=== PATIENT | male | born 1935 | race African-American/Black ===

== ENCOUNTER → 2017-04-16 | Outpatient (CLI) | payer MEDICARE, OTHER ==
[~2017-04-16] VITALS: Ht 180.3 cm; Wt 76.0 kg
[~2017-04-16] MED LIST: APIX2.5T PO; ASPI81 PO; FOLI1TAB15 PO; PYRI50TA PO; TELM20 PO
[2017-04-16 10:20] VITALS: BP 103/80
== END | disposition home or self-care (01) ==
LOC: SRCNTR 10:10
PROVIDERS: ATTEND Internal Medicine Clinical Cardiac Electrophysiology
DX: Z45.018 Encounter for adjustment and management of other part of cardiac pacemaker (principal); I11.0 Hypertensive heart disease with heart failure; I50.22 Chronic systolic (congestive) heart failure; I48.91 Unspecified atrial fibrillation; Z86.73 Personal history of transient ischemic attack (TIA), and cerebral infarction without residual deficits
CPT/HCPCS: G0463

== ENCOUNTER → 2017-07-16 | Outpatient (CLI) | payer MEDICARE, OTHER ==
[~2017-07-16] VITALS: Ht 180.3 cm; Wt 71.0 kg
[~2017-07-16] MED LIST changes: +VITAD50000 PO
[2017-07-16 10:32] VITALS: BP 117/72
== END | disposition home or self-care (01) ==
LOC: SRCNTR 10:08
PROVIDERS: ATTEND Internal Medicine Clinical Cardiac Electrophysiology
DX: Z45.02 Encounter for adjustment and management of automatic implantable cardiac defibrillator (principal); I11.0 Hypertensive heart disease with heart failure; I50.9 Heart failure, unspecified; I48.91 Unspecified atrial fibrillation; Z86.73 Personal history of transient ischemic attack (TIA), and cerebral infarction without residual deficits
CPT/HCPCS: G0463

== ENCOUNTER 2017-10-30 07:59 | Day surgery (SDC) | payer MEDICARE, OTHER ==
[~2017-10-30] VITALS: Ht 170.2 cm; Wt 80.0 kg
[~2017-10-30 07:59] MED LIST changes: -PYRI50TA PO; +PYRI50TA15 PO
[2017-10-30] MEDS ORDERED: FentaNYL CITRATE-PF 100 MCG/2 ML VIAL IVP ONE (08:00)
[2017-10-30] MEDS ORDERED: 0.9% SODIUM CHLORIDE 10 ML VIAL IVP ONE (08:00)
[2017-10-30] MEDS ORDERED: PROPOFOL 1% 20 ML VIAL IVP ONE (08:00)
[2017-10-30] MEDS ORDERED: MIDAZOLAM HCL 2 MG/2 ML VIAL IVP ONE (08:00)
[2017-10-30] MEDS ORDERED: SODIUM CHLORIDE 0.9% 1,000 ML IV ONE (09:00)
[2017-10-30] MEDS ORDERED: NAPR220T57 PO (09:16)
[2017-10-30] MEDS ORDERED: PYRI100T2 PO (09:37)
[2017-10-30] MEDS ORDERED: FOLI0.4T4 PO (09:37)
[2017-10-30 09:44] LABS: BASOPHILS % (AUTO) 0.6 % (0.0-2.0); EOSINOPHILS % (AUTO) 3.5 % (1.0-6.0); HEMATOCRIT 39.2 % (41-53); HEMOGLOBIN 13.5 g/dL (13.5-17.5); LYMPHOCYTES # (AUTO) 0.8 K/uL (1.0-4.8); LYMPHOCYTES % (AUTO) 32.3 % (22.0-44.0); MEAN CORPUSCULAR HEMOGLOBIN 31.9 pg (26.0-34.0); MEAN CORPUSCULAR HGB CONC 34.6 G/dL (31.0-37.0); MEAN CORPUSCULAR VOLUME 92 fL (80-100); MONOCYTES # (AUTO) 0.3 K/uL (0.1-1.0); MONOCYTES % (AUTO) 10.7 % (2.0-9.0); NEUTROPHILS # (AUTO) 1.3 K/uL (1.8-7.7); NEUTROPHILS % (AUTO) 52.9 % (40.0-70.0); RED BLOOD CELL COUNT(AUTO) 4.25 MIL/uL (4.50-5.90); RED CELL DISTRIBUTION WIDTH 14.7 % (11.5-14.5); WHITE BLOOD COUNT (AUTO) 2.5 K/uL (4.5-11.0)
[2017-10-30 09:50] LABS: ANION GAP 3 mmol/L (8-16); CALCIUM, TOTAL 8.7 mg/dL (8.8-10.5); CARBON DIOXIDE 31 mmol/L (22-29); CHLORIDE 107 mmol/L (98-107); CREATININE 0.94 mg/dL (0.60-1.30); GLOMERULAR FILTR. RATE CALC > 60 mL/min (>60); POTASSIUM 3.8 mmol/L (3.5-5.1); SODIUM SERUM 141 mmol/L (136-145); UREA NITROGEN, BLOOD 10 mg/dL (7-18)
[2017-10-30 09:58] LABS: PLATELET COUNT (AUTO) 62 K/uL (150-450)
[2017-10-30] MEDS ORDERED: LIDOCAINE HCL/PF 1% 30 ML VIAL ONE ×2 (11:17→11:50)
[2017-10-30] MEDS ORDERED: SODIUM BICARBONATE 50 MEQ/50 ML VIAL ONE (11:18)
[2017-10-30 11:21] VITALS: BP 134/47
[2017-10-30] MEDS ORDERED: BUPIVACAINE LIPOSOME/PF 1.3%-13.3MG/ML SUSPENSION 10 ML VIAL INJ ONE (11:45)
[2017-10-30] MEDS ORDERED: LIDOCAINE 1% 30 ML/SOD BICARB 8.4% 4 ML SQ ONE (11:45)
[2017-10-30 12:34] VITALS: BP 146/101
[2017-10-30] MEDS ORDERED: CeFAZolin 1 GM/DEXTROSE 50 ML IV ONE (15:30)
== END 2017-10-30 16:30 | disposition home or self-care (01) ==
LOC: SDS 07:59
PROVIDERS: ATTEND Internal Medicine Clinical Cardiac Electrophysiology
DX: Z45.02 Encounter for adjustment and management of automatic implantable cardiac defibrillator (principal); I11.0 Hypertensive heart disease with heart failure; I50.9 Heart failure, unspecified; I25.10 Atherosclerotic heart disease of native coronary artery without angina pectoris; I44.7 Left bundle-branch block, unspecified; Z79.01 Long term (current) use of anticoagulants; Z79.82 Long term (current) use of aspirin; Z98.890 Other specified postprocedural states; Z86.73 Personal history of transient ischemic attack (TIA), and cerebral infarction without residual deficits
CPT/HCPCS: 33264; 36415; 80048; 85025; 85610; 85730; 88300; 93005; C2621; J0690; J2250; J2704; J3010; J3490 ×2; 33240

== ENCOUNTER → 2017-10-31 | Outpatient (CLI) | payer MEDICARE, OTHER ==
[~2017-10-31] MED LIST changes: +CeFAZolin 1 GM/DEXTROSE 50 ML IV ONE; +FOLI0.4T4 PO; -FOLI1TAB15 PO; +NAPR220T57 PO; +PYRI100T2 PO; -PYRI50TA15 PO; +SODIUM CHLORIDE 0.9% 1,000 ML IV ONE
[2017-10-31 09:21] VITALS: BP 119/75
== END | disposition home or self-care (01) ==
LOC: SRCNTR 09:07
PROVIDERS: ATTEND Internal Medicine Clinical Cardiac Electrophysiology
DX: Z45.010 Encounter for checking and testing of cardiac pacemaker pulse generator [battery] (principal)
CPT/HCPCS: G0463; J0690; J7030

== ENCOUNTER → 2017-11-05 | Outpatient (CLI) | payer MEDICARE, OTHER ==
[~2017-11-05] MED LIST changes: -CeFAZolin 1 GM/DEXTROSE 50 ML IV ONE; +NEOMYCIN/BACITRACIN/POLYMYXIN B OINTMENT PACKET TP ONE; -SODIUM CHLORIDE 0.9% 1,000 ML IV ONE
[2017-11-05 11:33] VITALS: BP 123/79
== END | disposition home or self-care (01) ==
LOC: SRCNTR 11:07
PROVIDERS: ATTEND Internal Medicine Clinical Cardiac Electrophysiology
DX: Z45.02 Encounter for adjustment and management of automatic implantable cardiac defibrillator (principal); I11.0 Hypertensive heart disease with heart failure; I48.0 Paroxysmal atrial fibrillation; I50.22 Chronic systolic (congestive) heart failure; Z79.01 Long term (current) use of anticoagulants; Z79.82 Long term (current) use of aspirin; Z86.73 Personal history of transient ischemic attack (TIA), and cerebral infarction without residual deficits; Z95.810 Presence of automatic (implantable) cardiac defibrillator; Z98.890 Other specified postprocedural states
CPT/HCPCS: G0463

== ENCOUNTER → 2017-11-08 | Outpatient (CLI) | payer MEDICARE, OTHER ==
[~2017-11-08] MED LIST changes: -NEOMYCIN/BACITRACIN/POLYMYXIN B OINTMENT PACKET TP ONE
[2017-11-08 09:08] VITALS: BP 96/50
== END | disposition home or self-care (01) ==
LOC: SRCNTR 09:07
PROVIDERS: ATTEND Internal Medicine Clinical Cardiac Electrophysiology
DX: Z45.02 Encounter for adjustment and management of automatic implantable cardiac defibrillator (principal); Z95.810 Presence of automatic (implantable) cardiac defibrillator
CPT/HCPCS: G0463

== ENCOUNTER → 2017-11-12 | Outpatient (CLI) | payer MEDICARE, OTHER ==
[2017-11-12 12:21] VITALS: BP 125/66
== END | disposition home or self-care (01) ==
LOC: SRCNTR 12:04
PROVIDERS: ATTEND Internal Medicine Clinical Cardiac Electrophysiology
DX: Z45.018 Encounter for adjustment and management of other part of cardiac pacemaker (principal)
CPT/HCPCS: 93288; G0463

== ENCOUNTER → 2017-12-10 | Outpatient (CLI) | payer MEDICARE, OTHER ==
[2017-12-10 12:43] VITALS: BP 99/57
== END | disposition home or self-care (01) ==
LOC: SRCNTR 11:02
PROVIDERS: ATTEND Internal Medicine Clinical Cardiac Electrophysiology
DX: I50.22 Chronic systolic (congestive) heart failure (principal); I48.0 Paroxysmal atrial fibrillation; Z79.01 Long term (current) use of anticoagulants; Z79.82 Long term (current) use of aspirin; Z86.73 Personal history of transient ischemic attack (TIA), and cerebral infarction without residual deficits; Z95.810 Presence of automatic (implantable) cardiac defibrillator
CPT/HCPCS: 93288; G0463

== ENCOUNTER → 2018-02-10 | Outpatient (CLI) | payer MEDICARE, OTHER ==
[~2018-02-10] MED LIST changes: +CYAN1TAB44 PO; +FURO40 PO; +IBUP-2354 PO
[2018-02-10 11:30] VITALS: BP 126/82
== END | disposition home or self-care (01) ==
LOC: SRCNTR 10:46
PROVIDERS: ATTEND Internal Medicine Cardiovascular Disease
DX: I11.0 Hypertensive heart disease with heart failure (principal); I50.9 Heart failure, unspecified; I48.0 Paroxysmal atrial fibrillation; I42.9 Cardiomyopathy, unspecified; D64.9 Anemia, unspecified; Z79.01 Long term (current) use of anticoagulants; Z79.82 Long term (current) use of aspirin; Z86.73 Personal history of transient ischemic attack (TIA), and cerebral infarction without residual deficits; Z95.810 Presence of automatic (implantable) cardiac defibrillator
CPT/HCPCS: G0463

== ENCOUNTER → 2018-05-14 | Outpatient (CLI) | payer MEDICARE, OTHER ==
[~2018-05-14] MED LIST changes: +ACET-66 PO; -APIX2.5T PO; -NAPR220T57 PO; -PYRI100T2 PO
[2018-05-14 09:53] VITALS: BP 109/68
== END | disposition home or self-care (01) ==
LOC: SRCNTR 09:27
PROVIDERS: ATTEND Internal Medicine Cardiovascular Disease
DX: I11.0 Hypertensive heart disease with heart failure (principal); I42.9 Cardiomyopathy, unspecified; I48.0 Paroxysmal atrial fibrillation; I49.9 Cardiac arrhythmia, unspecified; D64.9 Anemia, unspecified; Z86.73 Personal history of transient ischemic attack (TIA), and cerebral infarction without residual deficits; Z95.810 Presence of automatic (implantable) cardiac defibrillator
CPT/HCPCS: G0463

== ENCOUNTER → 2018-06-20 | Outpatient (CLI) | payer MEDICARE, OTHER ==
[~2018-06-20] VITALS: Ht 180.3 cm; Wt 73.0 kg
[~2018-06-20] MED LIST changes: -IBUP-2354 PO
[2018-06-20 13:03] VITALS: BP 119/79
== END | disposition home or self-care (01) ==
LOC: SRCNTR 13:03
PROVIDERS: ATTEND Internal Medicine Clinical Cardiac Electrophysiology
DX: I47.1 Supraventricular tachycardia (principal); I11.0 Hypertensive heart disease with heart failure; I50.9 Heart failure, unspecified; I48.0 Paroxysmal atrial fibrillation; Z86.73 Personal history of transient ischemic attack (TIA), and cerebral infarction without residual deficits; Z95.810 Presence of automatic (implantable) cardiac defibrillator
CPT/HCPCS: G0463

== ENCOUNTER → 2018-06-20 | Outpatient (CLI) | payer MEDICARE, OTHER ==
[2018-06-20 12:53] LABS: BASOPHILS % (AUTO) 0.6 % (0.0-2.0); HEMOGLOBIN 13.8 g/dL (13.5-17.5); LYMPHOCYTES # (AUTO) 0.9 K/uL (1.0-4.8); LYMPHOCYTES % (AUTO) 35.4 % (22.0-44.0); MEAN CORPUSCULAR HEMOGLOBIN 31.7 pg (26.0-34.0); MEAN CORPUSCULAR HGB CONC 35.4 G/dL (31.0-37.0); MEAN CORPUSCULAR VOLUME 90 fL (80-100); MONOCYTES # (AUTO) 0.3 K/uL (0.1-1.0); MONOCYTES % (AUTO) 11.9 % (2.0-9.0); NEUTROPHILS # (AUTO) 1.2 K/uL (1.8-7.7); NEUTROPHILS % (AUTO) 48.1 % (40.0-70.0); RED BLOOD CELL COUNT(AUTO) 4.35 MIL/uL (4.50-5.90); RED CELL DISTRIBUTION WIDTH 14.1 % (11.5-14.5)
[2018-06-20 13:15] LABS: PLATELET COUNT (AUTO) 71 K/uL (150-450)
[2018-06-20 13:24] LABS: ALANINE AMINOTRANSFERASE 22 U/L (12-78); ALBUMIN 3.4 g/dL (3.4-5.0); ALKALINE PHOSPHATASE 63 U/L (46-116); ANION GAP 6 mmol/L (8-16); ASPARTATE AMINOTRANSFERASE 26 U/L (15-37); BILIRUBIN,TOTAL 1.1 mg/dL (0.1-1.0); CALCIUM, TOTAL 8.7 mg/dL (8.8-10.5); CARBON DIOXIDE 30 mmol/L (22-29); CHLORIDE 107 mmol/L (98-107); CHOL/HDL RATIO 2.6 (4.2-7.3); CHOLESTEROL 180 mg/dL (131-200); CREATININE 0.95 mg/dL (0.60-1.30); GLUCOSE,RANDOM 92 mg/dL (70-110); HDL CHOLESTEROL 70 mg/dL (40-60); LDL CHOL (CALC.) 97 mg/dL (0-130); POTASSIUM 4.1 mmol/L (3.5-5.1); SODIUM SERUM 143 mmol/L (136-145); THYROID STIMULATING HORMONE 2.32 uIU/mL (0.36-3.74); TRIGLYCERIDES 63 mg/dL (15-150); UREA NITROGEN, BLOOD 8 mg/dL (7-18)
[2018-06-20 13:31] LABS: GLOMERULAR FILTR. RATE CALC > 60 mL/min (>60); PROSTATE SPECIFIC ANTIGEN 6.59 ng/mL (0.00-4.00)
[2018-06-23 12:11] LABS: APPEARANCE,URINE CLEAR (CLEAR); BILIRUBIN,URINE PRELIM. POSITIVE (NEGATIVE); GLUCOSE, URINE (UA) NEGATIVE (NEGATIVE); KETONES,URINE NEGATIVE (NEGATIVE); LEUKOCYTE ESTERASE ,URINE NEGATIVE (NEGATIVE); NITRATE,URINE NEGATIVE (NEGATIVE); OCCULT BLOOD,URINE SMALL (NEGATIVE); PROTEIN,URINE POS 1+ (NEGATIVE); UROBILINOGEN,URINE 0.2 mg/dL (<=1.0)
[2018-06-23 12:13] LABS: BACTERIA,URINE Few /HPF (None Seen)
[2018-06-23 12:14] LABS: MUCUS,URINE Few LPF (None Seen)
[2018-06-23 12:15] LABS: SQUAMOUS EPITHELIAL CELL,UR None Seen /LPF (None Seen)
[2018-06-23 12:16] LABS: CALCIUM OXALATE CRYSTALS,UR Rare /LPF (None Seen)
== END | disposition home or self-care (01) ==
LOC: LABPV 11:11
PROVIDERS: ATTEND Internal Medicine Cardiovascular Disease
DX: I11.0 Hypertensive heart disease with heart failure (principal); I50.9 Heart failure, unspecified; I48.0 Paroxysmal atrial fibrillation; I25.10 Atherosclerotic heart disease of native coronary artery without angina pectoris; E11.9 Type 2 diabetes mellitus without complications; R97.20 Elevated prostate specific antigen [PSA]
CPT/HCPCS: 82271; 84153; 84443

== ENCOUNTER 2018-07-31 10:04 | Emergency (ER) | payer MEDICARE, OTHER ==
[~2018-07-31] VITALS: Ht 180.3 cm; Wt 72.7 kg
[2018-07-31 12:11] LABS: BASOPHILS % (AUTO) 0.6 % (0.0-2.0); EOSINOPHILS % (AUTO) 3.3 % (1.0-6.0); HEMOGLOBIN 13.6 g/dL (13.5-17.5); LYMPHOCYTES % (AUTO) 38.3 % (22.0-44.0); MEAN CORPUSCULAR HEMOGLOBIN 31.1 pg (26.0-34.0); MEAN CORPUSCULAR HGB CONC 34.7 G/dL (31.0-37.0); MEAN CORPUSCULAR VOLUME 90 fL (80-100); MONOCYTES # (AUTO) 0.3 K/uL (0.1-1.0); MONOCYTES % (AUTO) 12.3 % (2.0-9.0); NEUTROPHILS # (AUTO) 1.2 K/uL (1.8-7.7); NEUTROPHILS % (AUTO) 45.5 % (40.0-70.0); PLATELET COUNT (AUTO) 64 K/uL (150-450); RED BLOOD CELL COUNT(AUTO) 4.36 MIL/uL (4.50-5.90); RED CELL DISTRIBUTION WIDTH 14.2 % (11.5-14.5)
[2018-07-31 12:25] LABS: ANION GAP 8 mmol/L (8-16); CARBON DIOXIDE 32 mmol/L (22-29); CHLORIDE 106 mmol/L (98-107); CREATININE 0.84 mg/dL (0.60-1.30); GLOMERULAR FILTR. RATE CALC > 60 mL/min (>60); GLUCOSE,RANDOM 94 mg/dL (70-110); SODIUM SERUM 146 mmol/L (136-145); UREA NITROGEN, BLOOD 10 mg/dL (7-18)
[2018-07-31 12:30] LABS: ALANINE AMINOTRANSFERASE 18 U/L (12-78); ALBUMIN 3.2 g/dL (3.4-5.0); ALKALINE PHOSPHATASE 68 U/L (46-116); ASPARTATE AMINOTRANSFERASE 23 U/L (15-37); BILIRUBIN,TOTAL 1.3 mg/dL (0.1-1.0)
[2018-07-31] MEDS ORDERED: SODIUM CHLORIDE 0.9% 100 ML ONE (12:33)
[2018-07-31] MEDS ORDERED: IOVERSOL 320 MG/ML 100 ML VIAL ONE (12:33)
[2018-07-31 12:39] LABS: INR 1.1 (0.9-1.1); PROTHROMBIN TIME 11.2 SEC (9.4-11.6)
[2018-07-31 15:39] VITALS: BP 140/88
== END 2018-07-31 15:56 | disposition home or self-care (01) ==
LOC: EMS 10:05
DX: T17.228A Food in pharynx causing other injury, initial encounter (principal); I11.0 Hypertensive heart disease with heart failure; I50.9 Heart failure, unspecified; Z86.73 Personal history of transient ischemic attack (TIA), and cerebral infarction without residual deficits; Z95.0 Presence of cardiac pacemaker; Z79.82 Long term (current) use of aspirin; Z79.899 Other long term (current) drug therapy; X58.XXXA Exposure to other specified factors, initial encounter; Y93.89 Activity, other specified; Y92.89 Other specified places as the place of occurrence of the external cause; Y99.8 Other external cause status
CPT/HCPCS: 36415; 70491; 71046; 80053; 85025; 85610; 99285; J7050; Q9967

== ENCOUNTER → 2018-08-11 | Outpatient (CLI) | payer MEDICARE, OTHER ==
[~2018-08-11] VITALS: Ht 180.3 cm; Wt 81.0 kg
[2018-08-11 10:17] VITALS: BP 106/76
== END | disposition home or self-care (01) ==
LOC: SRCNTR 10:05
PROVIDERS: ATTEND Internal Medicine Cardiovascular Disease
DX: I11.0 Hypertensive heart disease with heart failure (principal); I50.9 Heart failure, unspecified; I42.9 Cardiomyopathy, unspecified; I49.9 Cardiac arrhythmia, unspecified; I47.1 Supraventricular tachycardia; M19.90 Unspecified osteoarthritis, unspecified site
CPT/HCPCS: G0463

== ENCOUNTER → 2018-08-15 | Outpatient (CLI) | payer MEDICARE, OTHER | END | disposition home or self-care (01) | LOC: RADPV 08:51 | PROVIDERS: ATTEND Internal Medicine Cardiovascular Disease | DX: I34.0 Nonrheumatic mitral (valve) insufficiency (principal); I11.0 Hypertensive heart disease with heart failure; I50.9 Heart failure, unspecified | CPT/HCPCS: 93306 ==

== ENCOUNTER 2018-09-09 09:44 | Emergency (ER) | payer MEDICARE, OTHER ==
[~2018-09-09] VITALS: Ht 180.3 cm; Wt 75.0 kg
[2018-09-09 11:14] VITALS: BP 141/95
[2018-09-09] MEDS ORDERED: FLUORESCEIN SODIUM 1 MG STRIP ONE (11:26)
== END 2018-09-09 12:55 | disposition home or self-care (01) ==
LOC: EMS 09:45
DX: B02.30 Zoster ocular disease, unspecified (principal); I11.0 Hypertensive heart disease with heart failure; I50.9 Heart failure, unspecified; Z86.73 Personal history of transient ischemic attack (TIA), and cerebral infarction without residual deficits; Z95.0 Presence of cardiac pacemaker; Z79.82 Long term (current) use of aspirin
CPT/HCPCS: 99283

== ENCOUNTER 2018-09-11 01:37 | Inpatient (IN) | payer MEDICARE, OTHER ==
[~2018-09-11] VITALS: Ht 175.3 cm; Wt 78.3 kg
[~2018-09-11 01:37] MED LIST changes: -FURO40 PO
[2018-09-11 02:19] LABS: GLUCOSE,POINT OF CARE 90 MG/DL (70-110)
[2018-09-11 02:21] LABS: BASOPHILS % (AUTO) 0.6 % (0.0-2.0); EOSINOPHILS % (AUTO) 1.2 % (1.0-6.0); HEMATOCRIT 35.1 % (41-53); HEMOGLOBIN 12.3 g/dL (13.5-17.5); LYMPHOCYTES # (AUTO) 0.8 K/uL (1.0-4.8); LYMPHOCYTES % (AUTO) 26.1 % (22.0-44.0); MEAN CORPUSCULAR HEMOGLOBIN 31.2 pg (26.0-34.0); MEAN CORPUSCULAR HGB CONC 35.1 G/dL (31.0-37.0); MEAN CORPUSCULAR VOLUME 89 fL (80-100); MONOCYTES # (AUTO) 0.4 K/uL (0.1-1.0); MONOCYTES % (AUTO) 14.9 % (2.0-9.0); NEUTROPHILS # (AUTO) 1.7 K/uL (1.8-7.7); NEUTROPHILS % (AUTO) 57.2 % (40.0-70.0); RED BLOOD CELL COUNT(AUTO) 3.95 MIL/uL (4.50-5.90); RED CELL DISTRIBUTION WIDTH 14.4 % (11.5-14.5)
[2018-09-11 02:27] LABS: ANION GAP 4 mmol/L (8-16); CALCIUM, TOTAL 8.5 mg/dL (8.8-10.5); CARBON DIOXIDE 30 mmol/L (22-29); CHLORIDE 106 mmol/L (98-107); CREATININE 0.98 mg/dL (0.60-1.30); GLUCOSE,RANDOM 108 mg/dL (70-110); SODIUM SERUM 140 mmol/L (136-145); UREA NITROGEN, BLOOD 11 mg/dL (7-18)
[2018-09-11 02:28] LABS: GLOMERULAR FILTR. RATE CALC > 60 mL/min (>60)
[2018-09-11 02:29] LABS: INR 1.1 (0.9-1.1); PROTHROMBIN TIME 11.2 SEC (9.4-11.6)
[2018-09-11 02:33] LABS: ALANINE AMINOTRANSFERASE 18 U/L (12-78); ALBUMIN 2.8 g/dL (3.4-5.0); ALKALINE PHOSPHATASE 60 U/L (46-116); ASPARTATE AMINOTRANSFERASE 25 U/L (15-37); BILIRUBIN,TOTAL 0.6 mg/dL (0.1-1.0); TOTAL PROTEIN, SERUM 6.1 g/dL (6.4-8.2)
[2018-09-11 02:34] LABS: PLATELET COUNT (AUTO) 68 K/uL (150-450)
[2018-09-11] MEDS ORDERED: ONDANSETRON HCL 4 MG/2 ML VIAL IVP PRN (02:45)
[2018-09-11] MEDS ORDERED: 0.9% SODIUM CHLORIDE 10 ML SYRINGE IVP PRN (02:45)
[2018-09-11] MEDS ORDERED: ACETAMINOPHEN 325 MG TABLET PO PRN ×2 (02:45→08:45)
[2018-09-11 03:56] VITALS: BP 141/93
[2018-09-11 07:49] VITALS: BP 130/75
[2018-09-11] MEDS ORDERED: MAGNESIUM HYDROXIDE SUSPENSION 30 ML UDCUP PO PRN (08:45)
[2018-09-11] MEDS ORDERED: ALBUTEROL SULFATE 2.5 MG/0.5 ML NEB SOLUTION NEB PRN (08:45)
[2018-09-11] MEDS: ASPIRIN 81 MG CHEWABLE TABLET PO SCH (09:00)
[2018-09-11] MEDS: DOCUSATE SODIUM 100 MG CAPSULE PO SCH ×2 (09:06→20:45)
[2018-09-11] MEDS: ATORVASTATIN CALCIUM 20 MG TABLET PO SCH (09:06)
[2018-09-11] MEDS: PANTOPRAZOLE SODIUM 40 MG DR TABLET PO SCH (09:06)
[2018-09-11] MEDS: ACYCLOVIR 800 MG TABLET PO SCH ×4 (10:49→22:31)
[2018-09-11 11:29] VITALS: BP 135/82
[2018-09-11 11:35] LABS: CHOL/HDL RATIO 2.6 (4.2-7.3); CHOLESTEROL 144 mg/dL (131-200); HDL CHOLESTEROL 56 mg/dL (40-60); LDL CHOL (CALC.) 80 mg/dL (0-130); THYROID STIMULATING HORMONE 2.04 uIU/mL (0.36-3.74); TRIGLYCERIDES 42 mg/dL (15-150)
[2018-09-11 15:19] VITALS: BP 125/64
[2018-09-11] MEDS ORDERED: HEPARIN SODIUM,PORCINE 5,000 UNITS/ML VIAL SQ SCH (16:00)
[2018-09-11 19:53] VITALS: BP 121/77
[2018-09-12 00:03] VITALS: BP 115/84
[2018-09-12 05:05] VITALS: BP 127/84
[2018-09-12] MEDS: ACYCLOVIR 800 MG TABLET PO SCH ×5 (05:48→21:04)
[2018-09-12 08:20] VITALS: BP 127/90
[2018-09-12] MEDS: DOCUSATE SODIUM 100 MG CAPSULE PO SCH ×2 (08:43→20:16)
[2018-09-12] MEDS: ASPIRIN 81 MG CHEWABLE TABLET PO SCH (08:43)
[2018-09-12] MEDS: PANTOPRAZOLE SODIUM 40 MG DR TABLET PO SCH (08:43)
[2018-09-12] MEDS: ATORVASTATIN CALCIUM 20 MG TABLET PO SCH (08:43)
[2018-09-12 11:39] VITALS: BP 107/65
[2018-09-12] MEDS ORDERED: DENTURE ADHESIVE 68 GM CREAM DT PRN (13:15)
[2018-09-12 16:53] VITALS: BP 126/77
[2018-09-12 19:39] VITALS: BP 117/81
[2018-09-13 00:08] VITALS: BP 112/71
[2018-09-13 04:41] VITALS: BP 120/78
[2018-09-13] MEDS: ACYCLOVIR 800 MG TABLET PO SCH ×2 (06:45→09:41)
[2018-09-13 06:55] LABS: BASOPHILS % (AUTO) 0.5 % (0.0-2.0); EOSINOPHILS % (AUTO) 4.1 % (1.0-6.0); HEMATOCRIT 39.5 % (41-53); MEAN CORPUSCULAR HEMOGLOBIN 31.8 pg (26.0-34.0); MEAN CORPUSCULAR HGB CONC 35.5 G/dL (31.0-37.0); MEAN CORPUSCULAR VOLUME 89 fL (80-100); MONOCYTES # (AUTO) 0.4 K/uL (0.1-1.0); MONOCYTES % (AUTO) 11.3 % (2.0-9.0); NEUTROPHILS # (AUTO) 1.8 K/uL (1.8-7.7); NEUTROPHILS % (AUTO) 53.1 % (40.0-70.0); PLATELET COUNT (AUTO) 66 K/uL (150-450); RED BLOOD CELL COUNT(AUTO) 4.42 MIL/uL (4.50-5.90)
[2018-09-13 07:26] VITALS: BP 124/90
[2018-09-13 07:29] LABS: ANION GAP 4 mmol/L (8-16); CALCIUM, TOTAL 8.8 mg/dL (8.8-10.5); CARBON DIOXIDE 32 mmol/L (22-29); CHLORIDE 105 mmol/L (98-107); CREATININE 0.89 mg/dL (0.60-1.30); GLOMERULAR FILTR. RATE CALC > 60 mL/min (>60); GLUCOSE,RANDOM 88 mg/dL (70-110); SODIUM SERUM 141 mmol/L (136-145)
[2018-09-13 07:40] LABS: UREA NITROGEN, BLOOD 10 mg/dL (7-18)
[2018-09-13] MEDS: PANTOPRAZOLE SODIUM 40 MG DR TABLET PO SCH (08:44)
[2018-09-13] MEDS: ATORVASTATIN CALCIUM 20 MG TABLET PO SCH (08:44)
[2018-09-13] MEDS: DOCUSATE SODIUM 100 MG CAPSULE PO SCH (08:44)
[2018-09-13] MEDS: ASPIRIN 81 MG CHEWABLE TABLET PO SCH (08:45)
[2018-09-13] MEDS ORDERED: MAGNESIUM OXIDE 400 MG TABLET PO ONE (11:00)
[2018-09-13 11:37] VITALS: BP 108/76
[2018-09-13] MEDS ORDERED: ATOR20TA86 PO (12:05)
[2018-09-14] MEDS ORDERED: FURO40 PO (16:21)
[2018-09-14] MEDS ORDERED: VALA500T38 PO (16:21)
[2018-09-14] MEDS ORDERED: ERGO80004 PO (16:21)
== END 2018-09-13 14:10 | disposition home or self-care (01) | DRG 69 ==
LOC: EMS 01:37 → 5S 02:30
PROVIDERS: ADMIT Internal Medicine; ATTEND Internal Medicine
DX: G45.9 Transient cerebral ischemic attack, unspecified (principal); B01.9 Varicella without complication; I49.5 Sick sinus syndrome; D69.6 Thrombocytopenia, unspecified; I50.9 Heart failure, unspecified; I11.0 Hypertensive heart disease with heart failure; R53.81 Other malaise; Z95.0 Presence of cardiac pacemaker; Z86.19 Personal history of other infectious and parasitic diseases
CPT/HCPCS: 51702; 70496; 83036; 83735; 84443; 93005; 97116; 97162; 97530; 99291; G0480

== ENCOUNTER 2018-09-14 15:58 | Inpatient (IN) | payer MEDICARE, OTHER ==
[~2018-09-14] VITALS: Ht 180.3 cm; Wt 77.5 kg
[~2018-09-14 15:58] MED LIST changes: +ATOR20TA86 PO; -FOLI0.4T4 PO
[2018-09-14] MEDS ORDERED: FURO40 PO (16:21)
[2018-09-14] MEDS ORDERED: VALA500T38 PO (16:21)
[2018-09-14] MEDS ORDERED: ERGO80004 PO (16:21)
[2018-09-14 16:32] LABS: BASOPHILS % (AUTO) 0.5 % (0.0-2.0); EOSINOPHILS % (AUTO) 0.3 % (1.0-6.0); HEMATOCRIT 39.1 % (41-53); HEMOGLOBIN 13.6 g/dL (13.5-17.5); LYMPHOCYTES # (AUTO) 0.5 K/uL (1.0-4.8); LYMPHOCYTES % (AUTO) 9.9 % (22.0-44.0); MEAN CORPUSCULAR HEMOGLOBIN 31.6 pg (26.0-34.0); MEAN CORPUSCULAR HGB CONC 34.7 G/dL (31.0-37.0); MEAN CORPUSCULAR VOLUME 91 fL (80-100); MONOCYTES # (AUTO) 0.5 K/uL (0.1-1.0); MONOCYTES % (AUTO) 9.1 % (2.0-9.0); NEUTROPHILS # (AUTO) 4.1 K/uL (1.8-7.7); NEUTROPHILS % (AUTO) 80.2 % (40.0-70.0); RED BLOOD CELL COUNT(AUTO) 4.29 MIL/uL (4.50-5.90); RED CELL DISTRIBUTION WIDTH 14.1 % (11.5-14.5)
[2018-09-14 16:41] LABS: ANION GAP 6 mmol/L (8-16); CALCIUM, TOTAL 8.3 mg/dL (8.8-10.5); CARBON DIOXIDE 28 mmol/L (22-29); CHLORIDE 104 mmol/L (98-107); CREATININE 1.06 mg/dL (0.60-1.30); GLUCOSE,RANDOM 118 mg/dL (70-110); INR 1.1 (0.9-1.1); POTASSIUM 3.7 mmol/L (3.5-5.1); PROTHROMBIN TIME 11.2 SEC (9.4-11.6); SODIUM SERUM 138 mmol/L (136-145); UREA NITROGEN, BLOOD 14 mg/dL (7-18)
[2018-09-14 16:42] LABS: GLOMERULAR FILTR. RATE CALC > 60 mL/min (>60)
[2018-09-14 16:56] LABS: PLATELET COUNT (AUTO) 73 K/uL (150-450)
[2018-09-14 16:57] LABS: PLATELET MORPHOLOGY COMMENT LARGE PLTS PRESENT
[2018-09-14 17:06] LABS: ALANINE AMINOTRANSFERASE 22 U/L (12-78); ALKALINE PHOSPHATASE 70 U/L (46-116); ASPARTATE AMINOTRANSFERASE 26 U/L (15-37); BILIRUBIN,TOTAL 1.6 mg/dL (0.1-1.0); CREATINE KINASE, TOTAL ONLY 209 U/L (39-308); LIPASE 106 U/L (73-393); THYROID STIMULATING HORMONE 0.86 uIU/mL (0.36-3.74); TOTAL PROTEIN, SERUM 6.8 g/dL (6.4-8.2)
[2018-09-14 18:09] LABS: APPEARANCE,URINE CLEAR (CLEAR); BILIRUBIN,URINE NEGATIVE (NEGATIVE); GLUCOSE, URINE (UA) NEGATIVE (NEGATIVE); KETONES,URINE NEGATIVE (NEGATIVE); LEUKOCYTE ESTERASE ,URINE NEGATIVE (NEGATIVE); NITRATE,URINE NEGATIVE (NEGATIVE); OCCULT BLOOD,URINE TRACE (NEGATIVE); PROTEIN,URINE POS 1+ (NEGATIVE)
[2018-09-14 18:35] LABS: WBC,URINE 0-2 /HPF (0-5)
[2018-09-14 18:36] LABS: BACTERIA,URINE Rare /HPF (None Seen); SQUAMOUS EPITHELIAL CELL,UR Rare /LPF (None Seen)
[2018-09-14] MEDS ORDERED: ValACYclovir HCL 500 MG TABLET PO ONE (19:45)
[2018-09-14] MEDS ORDERED: MAGNESIUM HYDROXIDE SUSPENSION 30 ML UDCUP PO PRN (20:30)
[2018-09-14] MEDS ORDERED: OxyCODONE HCL/ACETAMINOPHEN 5-325 MG TABLET PO PRN (20:30)
[2018-09-14] MEDS ORDERED: ALBUTEROL SULFATE 2.5 MG/0.5 ML NEB SOLUTION NEB PRN (20:30)
[2018-09-14] MEDS: ATORVASTATIN CALCIUM 40 MG TABLET PO SCH (21:49)
[2018-09-14] MEDS: DOCUSATE SODIUM 100 MG CAPSULE PO SCH (21:49)
[2018-09-14 22:01] VITALS: BP 147/90
[2018-09-14] MEDS: HEPARIN SODIUM,PORCINE 5,000 UNITS/ML VIAL SQ SCH (23:54)
[2018-09-14] MEDS: ValACYclovir HCL 500 MG TABLET PO SCH (23:55)
[2018-09-15] VITALS (8 sets, daily range): BP systolic 93–135; BP diastolic 57–75
[2018-09-15] MEDS: HEPARIN SODIUM,PORCINE 5,000 UNITS/ML VIAL SQ SCH ×2 (07:40→15:37)
[2018-09-15] MEDS: ASPIRIN 81 MG CHEWABLE TABLET PO SCH (07:41)
[2018-09-15] MEDS: ValACYclovir HCL 500 MG TABLET PO SCH ×2 (07:43→15:36)
[2018-09-15] MEDS: DOCUSATE SODIUM 100 MG CAPSULE PO SCH ×2 (07:43→20:35)
[2018-09-15] MEDS: ACETAMINOPHEN 325 MG TABLET PO PRN ×2 (07:43→15:37)
[2018-09-15] MEDS ORDERED: PNEUMOCOCCAL VACCINE POLYVALENT 0.5 ML VIAL [PPSV23] IM ONE (08:15)
[2018-09-15] MEDS ORDERED: ALBUTEROL SULFATE 2.5 MG/0.5 ML NEB SOLUTION NEB PRN (08:15)
[2018-09-15 09:34] LABS: BASOPHILS % (AUTO) 0.3 % (0.0-2.0); EOSINOPHILS % (AUTO) 0.2 % (1.0-6.0); HEMATOCRIT 37.6 % (41-53); HEMOGLOBIN 13.2 g/dL (13.5-17.5); LYMPHOCYTES # (AUTO) 0.7 K/uL (1.0-4.8); LYMPHOCYTES % (AUTO) 11.6 % (22.0-44.0); MEAN CORPUSCULAR HEMOGLOBIN 31.5 pg (26.0-34.0); MEAN CORPUSCULAR HGB CONC 35.1 G/dL (31.0-37.0); MEAN CORPUSCULAR VOLUME 90 fL (80-100); MONOCYTES # (AUTO) 0.6 K/uL (0.1-1.0); MONOCYTES % (AUTO) 9.1 % (2.0-9.0); NEUTROPHILS # (AUTO) 4.9 K/uL (1.8-7.7); NEUTROPHILS % (AUTO) 78.8 % (40.0-70.0); PLATELET COUNT (AUTO) 78 K/uL (150-450)
[2018-09-15 09:35] LABS: PLATELET MORPHOLOGY COMMENT LARGE PLTS PRESENT
[2018-09-15] MEDS: ATORVASTATIN CALCIUM 40 MG TABLET PO SCH (20:35)
[2018-09-15] MEDS ORDERED: VANCOMYCIN HCL 1 GM/D5% WATER 200 ML IV SCH (21:45)
[2018-09-16] MEDS: HEPARIN SODIUM,PORCINE 5,000 UNITS/ML VIAL SQ SCH ×3 (00:34→15:45)
[2018-09-16] MEDS: ValACYclovir HCL 500 MG TABLET PO SCH ×3 (00:34→15:45)
[2018-09-16 04:46] VITALS: BP 135/74
[2018-09-16 05:45] LABS: BASOPHILS % (AUTO) 0.2 % (0.0-2.0); EOSINOPHILS % (AUTO) 0.9 % (1.0-6.0); HEMATOCRIT 37.3 % (41-53); HEMOGLOBIN 13.3 g/dL (13.5-17.5); LYMPHOCYTES # (AUTO) 0.9 K/uL (1.0-4.8); MEAN CORPUSCULAR HEMOGLOBIN 32.2 pg (26.0-34.0); MEAN CORPUSCULAR HGB CONC 35.7 G/dL (31.0-37.0); MEAN CORPUSCULAR VOLUME 90 fL (80-100); MONOCYTES # (AUTO) 0.7 K/uL (0.1-1.0); MONOCYTES % (AUTO) 12.5 % (2.0-9.0); NEUTROPHILS # (AUTO) 3.6 K/uL (1.8-7.7); NEUTROPHILS % (AUTO) 68.4 % (40.0-70.0); PLATELET COUNT (AUTO) 76 K/uL (150-450); RED BLOOD CELL COUNT(AUTO) 4.14 MIL/uL (4.50-5.90); RED CELL DISTRIBUTION WIDTH 13.8 % (11.5-14.5)
[2018-09-16 05:57] LABS: ANION GAP 4 mmol/L (8-16); CALCIUM, TOTAL 8.3 mg/dL (8.8-10.5); CARBON DIOXIDE 29 mmol/L (22-29); CHLORIDE 102 mmol/L (98-107); CREATININE 1.03 mg/dL (0.60-1.30); GLUCOSE,RANDOM 99 mg/dL (70-110); SODIUM SERUM 135 mmol/L (136-145); UREA NITROGEN, BLOOD 12 mg/dL (7-18)
[2018-09-16 06:20] LABS: GLOMERULAR FILTR. RATE CALC > 60 mL/min (>60)
[2018-09-16 06:43] LABS: PLATELET MORPHOLOGY COMMENT LARGE PLTS PRESENT
[2018-09-16 07:27] VITALS: BP 124/80
[2018-09-16] MEDS ORDERED: SODIUM CHLORIDE 0.9% 250 ML IV ONE (08:47)
[2018-09-16] MEDS: DOCUSATE SODIUM 100 MG CAPSULE PO SCH ×2 (08:53→19:45)
[2018-09-16] MEDS: ASPIRIN 81 MG CHEWABLE TABLET PO SCH (08:53)
[2018-09-16] MEDS: VANCOMYCIN HCL 750 MG in DEXTROSE 5%-WATER 250 ML IV SCH ×2 (08:53→19:45)
[2018-09-16 11:10] VITALS: BP 104/62
[2018-09-16 15:32] VITALS: BP 112/71
[2018-09-16 19:31] VITALS: BP 132/76
[2018-09-16] MEDS: ATORVASTATIN CALCIUM 40 MG TABLET PO SCH (19:45)
[2018-09-16 23:32] VITALS: BP 133/66
[2018-09-17] MEDS: ValACYclovir HCL 500 MG TABLET PO SCH ×3 (00:16→18:58)
[2018-09-17] MEDS: HEPARIN SODIUM,PORCINE 5,000 UNITS/ML VIAL SQ SCH ×3 (00:16→16:00)
[2018-09-17 04:13] VITALS: BP 115/67
[2018-09-17 06:57] LABS: ANION GAP 5 mmol/L (8-16); CALCIUM, TOTAL 8.3 mg/dL (8.8-10.5); CARBON DIOXIDE 28 mmol/L (22-29); CHLORIDE 105 mmol/L (98-107); CREATININE 1.01 mg/dL (0.60-1.30); GLUCOSE,RANDOM 95 mg/dL (70-110); POTASSIUM 3.9 mmol/L (3.5-5.1); SODIUM SERUM 138 mmol/L (136-145); UREA NITROGEN, BLOOD 12 mg/dL (7-18)
[2018-09-17 07:07] LABS: GLOMERULAR FILTR. RATE CALC > 60 mL/min (>60)
[2018-09-17 07:19] VITALS: BP 174/86
[2018-09-17] MEDS: ASPIRIN 81 MG CHEWABLE TABLET PO SCH (08:23)
[2018-09-17] MEDS: DOCUSATE SODIUM 100 MG CAPSULE PO SCH ×2 (08:23→20:17)
[2018-09-17] MEDS: VANCOMYCIN HCL 750 MG in DEXTROSE 5%-WATER 250 ML IV SCH ×2 (08:24→20:17)
[2018-09-17] MEDS: TELMISARTAN 20 MG TABLET PO SCH (09:00)
[2018-09-17 11:22] VITALS: BP 160/72
[2018-09-17] MEDS ORDERED: HydrALAZINE HCL 20 MG/ML VIAL IVP PRN (14:00)
[2018-09-17 14:15] VITALS: BP 116/76
[2018-09-17 15:58] LABS: ALBUMIN 2.6 g/dL (3.4-5.0); BILIRUBIN,DIRECT 0.2 mg/dL (0.00-0.20); TOTAL PROTEIN, SERUM 6.5 g/dL (6.4-8.2)
[2018-09-17] MEDS ORDERED: IOVERSOL 350 MG/ML 100 ML VIAL ONE (16:28)
[2018-09-17] MEDS ORDERED: SODIUM CHLORIDE 0.9% 100 ML ONE (16:28)
[2018-09-17 16:52] VITALS: BP 128/70
[2018-09-17 19:39] VITALS: BP 126/83
[2018-09-17] MEDS: ATORVASTATIN CALCIUM 40 MG TABLET PO SCH (20:17)
[2018-09-17] MEDS ORDERED: VANCOMYCIN HCL 1 GM/D5% WATER 200 ML IV ONE (23:59)
[2018-09-18] VITALS (7 sets, daily range): BP systolic 107–120; BP diastolic 65–92
[2018-09-18] MEDS: ValACYclovir HCL 500 MG TABLET PO SCH ×3 (00:08→16:45)
[2018-09-18 06:35] LABS: ANION GAP 4 mmol/L (8-16); CARBON DIOXIDE 31 mmol/L (22-29); CHLORIDE 104 mmol/L (98-107); CREATININE 0.94 mg/dL (0.60-1.30); GLUCOSE,RANDOM 97 mg/dL (70-110); POTASSIUM 4.3 mmol/L (3.5-5.1); SODIUM SERUM 139 mmol/L (136-145); UREA NITROGEN, BLOOD 9 mg/dL (7-18); VANCOMYCIN,RANDOM 10.8 mcg/mL (25.0-50.0)
[2018-09-18 06:39] LABS: GLOMERULAR FILTR. RATE CALC > 60 mL/min (>60)
[2018-09-18] MEDS: ASPIRIN 81 MG CHEWABLE TABLET PO SCH (08:56)
[2018-09-18] MEDS: HEPARIN SODIUM,PORCINE 5,000 UNITS/ML VIAL SQ SCH ×3 (08:56→16:45)
[2018-09-18] MEDS: DOCUSATE SODIUM 100 MG CAPSULE PO SCH ×2 (08:56→20:08)
[2018-09-18] MEDS ORDERED: VANCOMYCIN HCL 1 GM/D5% WATER 200 ML IV ONE (09:00)
[2018-09-18] MEDS: TELMISARTAN 20 MG TABLET PO SCH (11:26)
[2018-09-18] MEDS: VANCOMYCIN HCL 1 GM/D5% WATER 200 ML IV SCH (20:08)
[2018-09-18] MEDS: ATORVASTATIN CALCIUM 40 MG TABLET PO SCH (20:08)
[2018-09-19] MEDS: AMPICILLIN SODIUM 2 GM/NS 100 ML IV SCH ×7 (00:27→23:54)
[2018-09-19] MEDS: HEPARIN SODIUM,PORCINE 5,000 UNITS/ML VIAL SQ SCH ×4 (00:27→23:53)
[2018-09-19] MEDS: ValACYclovir HCL 500 MG TABLET PO SCH ×4 (00:27→23:54)
[2018-09-19 04:50] VITALS: BP 120/84
[2018-09-19 06:40] LABS: ANION GAP 7 mmol/L (8-16); CALCIUM, TOTAL 8.7 mg/dL (8.8-10.5); CARBON DIOXIDE 28 mmol/L (22-29); CHLORIDE 105 mmol/L (98-107); CREATININE 0.96 mg/dL (0.60-1.30); GLUCOSE,RANDOM 90 mg/dL (70-110); POTASSIUM 4.3 mmol/L (3.5-5.1); SODIUM SERUM 140 mmol/L (136-145); UREA NITROGEN, BLOOD 13 mg/dL (7-18)
[2018-09-19 06:44] LABS: GLOMERULAR FILTR. RATE CALC > 60 mL/min (>60)
[2018-09-19 07:17] VITALS: BP 123/83
[2018-09-19] MEDS: ASPIRIN 81 MG CHEWABLE TABLET PO SCH (08:11)
[2018-09-19] MEDS: DOCUSATE SODIUM 100 MG CAPSULE PO SCH ×2 (08:12→20:23)
[2018-09-19] MEDS: TELMISARTAN 20 MG TABLET PO SCH (08:12)
[2018-09-19] MEDS: VANCOMYCIN HCL 1 GM/D5% WATER 200 ML IV SCH (08:58)
[2018-09-19 11:39] VITALS: BP 101/61
[2018-09-19 15:33] VITALS: BP 117/76
[2018-09-19 20:00] VITALS: BP 104/72
[2018-09-19] MEDS: ATORVASTATIN CALCIUM 40 MG TABLET PO SCH (20:23)
[2018-09-19] MEDS: CefTRIAXone SODIUM 2 GM in DEXTROSE 5%-WATER 20 ML IV SCH (20:55)
[2018-09-20] VITALS (7 sets, daily range): BP systolic 92–129; BP diastolic 58–80
[2018-09-20] MEDS: AMPICILLIN SODIUM 2 GM/NS 100 ML IV SCH ×6 (04:34→23:50)
[2018-09-20] MEDS: ASPIRIN 81 MG CHEWABLE TABLET PO SCH (09:11)
[2018-09-20] MEDS: HEPARIN SODIUM,PORCINE 5,000 UNITS/ML VIAL SQ SCH ×3 (09:11→23:26)
[2018-09-20] MEDS: ValACYclovir HCL 500 MG TABLET PO SCH ×3 (09:12→23:49)
[2018-09-20] MEDS: DOCUSATE SODIUM 100 MG CAPSULE PO SCH ×3 (09:12→21:00)
[2018-09-20] MEDS: CefTRIAXone SODIUM 2 GM in DEXTROSE 5%-WATER 20 ML IV SCH ×2 (09:13→20:40)
[2018-09-20] MEDS: TELMISARTAN 20 MG TABLET PO SCH (09:15)
[2018-09-20] MEDS ORDERED: SODIUM CHLORIDE 0.9% 250 ML IV ONE (09:20)
[2018-09-20] MEDS: ATORVASTATIN CALCIUM 40 MG TABLET PO SCH (20:40)
[2018-09-21] MEDS: AMPICILLIN SODIUM 2 GM/NS 100 ML IV SCH ×6 (04:22→23:55)
[2018-09-21 04:52] VITALS: BP 113/63
[2018-09-21 07:30] VITALS: BP 118/59
[2018-09-21] MEDS: DOCUSATE SODIUM 100 MG CAPSULE PO SCH ×2 (08:25→20:15)
[2018-09-21] MEDS: HEPARIN SODIUM,PORCINE 5,000 UNITS/ML VIAL SQ SCH ×2 (08:51→15:53)
[2018-09-21] MEDS: CefTRIAXone SODIUM 2 GM in DEXTROSE 5%-WATER 20 ML IV SCH ×2 (08:52→20:14)
[2018-09-21] MEDS: ASPIRIN 81 MG CHEWABLE TABLET PO SCH (08:52)
[2018-09-21] MEDS: ValACYclovir HCL 500 MG TABLET PO SCH ×3 (08:52→23:54)
[2018-09-21] MEDS: TELMISARTAN 20 MG TABLET PO SCH (08:53)
[2018-09-21 11:19] VITALS: BP 109/67
[2018-09-21 15:31] VITALS: BP 109/77
[2018-09-21 19:46] VITALS: BP 99/61
[2018-09-21 20:10] VITALS: BP 105/74
[2018-09-21] MEDS: ATORVASTATIN CALCIUM 40 MG TABLET PO SCH (20:14)
[2018-09-21] MEDS: LACTOBACILLUS ACIDOPHILUS/BULGARICUS GRANULES PACKET PO SCH (20:14)
[2018-09-22 00:03] VITALS: BP 121/66
[2018-09-22] MEDS: AMPICILLIN SODIUM 2 GM/NS 100 ML IV SCH ×3 (03:56→12:32)
[2018-09-22 04:02] VITALS: BP 116/67
[2018-09-22 07:36] VITALS: BP 116/72
[2018-09-22] MEDS: HEPARIN SODIUM,PORCINE 5,000 UNITS/ML VIAL SQ SCH ×2 (08:00)
[2018-09-22] MEDS: TELMISARTAN 20 MG TABLET PO SCH (09:00)
[2018-09-22] MEDS: DOCUSATE SODIUM 100 MG CAPSULE PO SCH (09:00)
[2018-09-22 09:19] LABS: ANION GAP 5 mmol/L (8-16); CALCIUM, TOTAL 8.3 mg/dL (8.8-10.5); CARBON DIOXIDE 30 mmol/L (22-29); CHLORIDE 106 mmol/L (98-107); GLUCOSE,RANDOM 88 mg/dL (70-110); POTASSIUM 3.9 mmol/L (3.5-5.1); SODIUM SERUM 141 mmol/L (136-145); UREA NITROGEN, BLOOD 11 mg/dL (7-18)
[2018-09-22 09:20] LABS: GLOMERULAR FILTR. RATE CALC > 60 mL/min (>60)
[2018-09-22 09:25] VITALS: BP 111/73
[2018-09-22 10:32] VITALS: BP 106/68
[2018-09-22] MEDS ORDERED: MIDAZOLAM HCL 2 MG/2 ML VIAL IVP ONE ×2 (11:00)
[2018-09-22] MEDS ORDERED: BENZOCAINE 20% 50 MCG/SPRAY 57 GM TP ONE (11:00)
[2018-09-22] MEDS ORDERED: FentaNYL CITRATE-PF 100 MCG/2 ML VIAL IVP ONE ×2 (11:00)
[2018-09-22 11:38] VITALS: BP 110/77
[2018-09-22] MEDS ORDERED: ERYTHROMYCIN 0.5% 3.5 GM TUBE OPHTHALMIC OINTMENT OS SCH (12:00)
[2018-09-22] MEDS: ValACYclovir HCL 500 MG TABLET PO SCH (12:29)
[2018-09-22] MEDS: ASPIRIN 81 MG CHEWABLE TABLET PO SCH (12:30)
[2018-09-22] MEDS: LACTOBACILLUS ACIDOPHILUS/BULGARICUS GRANULES PACKET PO SCH ×2 (12:30→13:00)
[2018-09-22] MEDS: CefTRIAXone SODIUM 2 GM in DEXTROSE 5%-WATER 20 ML IV SCH (12:31)
[2018-09-22] MEDS ORDERED: AMPI2VIA9 IV (14:19)
[2018-09-22] MEDS ORDERED: ASPI-556 PO (14:20)
[2018-09-22] MEDS ORDERED: ATOR40TA28 PO (14:21)
[2018-09-22] MEDS ORDERED: CEFTR1IV IV (14:21)
[2018-09-22] MEDS ORDERED: ERY500 OS (14:35)
[2018-09-22] MEDS ORDERED: LACT1POW8 PO (14:37)
[2018-09-22] MEDS ORDERED: TELM20 PO (14:38)
== END 2018-09-22 15:10 | DRG 308 ==
LOC: EMS 15:59 → 5S 20:08
PROVIDERS: ADMIT Internal Medicine; ATTEND Internal Medicine
PROC: B24BZZ4 Ultrasonography of Heart with Aorta, Transesophageal (ICD-10-PCS; principal; 2018-09-22)
DX: I49.5 Sick sinus syndrome (principal); A41.81 Sepsis due to Enterococcus; I50.22 Chronic systolic (congestive) heart failure; I11.0 Hypertensive heart disease with heart failure; I42.9 Cardiomyopathy, unspecified; W19.XXXA Unspecified fall, initial encounter; M21.371 Foot drop, right foot; B02.9 Zoster without complications; R29.6 Repeated falls; M21.372 Foot drop, left foot; R27.0 Ataxia, unspecified; H10.9 Unspecified conjunctivitis; I44.7 Left bundle-branch block, unspecified; H57.12 Ocular pain, left eye; Z95.810 Presence of automatic (implantable) cardiac defibrillator; Z79.82 Long term (current) use of aspirin; Z86.73 Personal history of transient ischemic attack (TIA), and cerebral infarction without residual deficits
CPT/HCPCS: 36245; 70450; 71260; 72128; 72131; 72193; 74160; 76937; 83735; 84443; 87040; 87081; 87205; 93005; 93306; 93312; 97110; 97116; 97163; 97166; 97530; 97535; G0378; J0290; J0360; J0696; J1644; J3370; J7050; J7060

== ENCOUNTER 2018-11-18 11:54 | Emergency (ER) | payer MEDICARE, OTHER ==
[~2018-11-18] VITALS: Ht 180.3 cm; Wt 76.4 kg
[~2018-11-18 11:54] MED LIST changes: -ACET-66 PO; +AMPI2VIA9 IV; +ASPI-556 PO; -ATOR20TA86 PO; +ATOR40TA28 PO; +CEFTR1IV IV; +ERGO80004 PO; +ERY500 OS; +FURO40 PO; +LACT1POW8 PO
[2018-11-18] MEDS ORDERED: ACYC200O5 PO (12:12)
[2018-11-18] MEDS ORDERED: VALA500T38 PO (12:13)
[2018-11-18 13:05] VITALS: BP 135/99
[2018-11-18] MEDS ORDERED: FLUORESCEIN SODIUM 1 MG STRIP OS ONE (13:30)
[2018-11-18] MEDS ORDERED: ERGO500014 PO (13:37)
[2018-11-18] MEDS ORDERED: FURO20 PO (13:37)
[2018-11-18] MEDS ORDERED: ACID1GRA PO (13:37)
== END 2018-11-18 14:44 | disposition home or self-care (01) ==
LOC: EMS 11:55
DX: B02.9 Zoster without complications (principal); I11.0 Hypertensive heart disease with heart failure; I50.9 Heart failure, unspecified; Z79.82 Long term (current) use of aspirin; Z79.899 Other long term (current) drug therapy

== ENCOUNTER 2018-12-01 12:55 | Emergency (ER) | payer MEDICARE, OTHER ==
[~2018-12-01] VITALS: Ht 180.3 cm; Wt 80.9 kg
[~2018-12-01 12:55] MED LIST changes: +ACID1GRA PO; -ASPI-556 PO; -CEFTR1IV IV; +ERGO500014 PO; -ERGO80004 PO; +FURO20 PO; -FURO40 PO; -LACT1POW8 PO; +VALA500T38 PO; -VITAD50000 PO
[2018-12-01 13:21] VITALS: BP 138/95
[2018-12-03] MEDS ORDERED: ACET1TAB12 PO (10:50)
== END 2018-12-01 14:17 | disposition home or self-care (01) ==
LOC: EMS 13:36
DX: B02.9 Zoster without complications (principal); I11.0 Hypertensive heart disease with heart failure; I50.9 Heart failure, unspecified; Z79.82 Long term (current) use of aspirin; Z79.899 Other long term (current) drug therapy

== ENCOUNTER → 2018-12-16 | Outpatient (CLI) | payer MEDICARE, OTHER ==
[~2018-12-16] VITALS: Ht 170.2 cm; Wt 76.5 kg
[~2018-12-16] MED LIST changes: +ACET1TAB12 PO; -AMPI2VIA9 IV; -ERY500 OS
[2018-12-16 10:59] VITALS: BP 124/68
== END | disposition home or self-care (01) ==
LOC: SRCNTR 10:53
PROVIDERS: ATTEND Internal Medicine Clinical Cardiac Electrophysiology
DX: Z45.09 Encounter for adjustment and management of other cardiac device (principal); I48.91 Unspecified atrial fibrillation; I11.0 Hypertensive heart disease with heart failure; I50.9 Heart failure, unspecified
CPT/HCPCS: G0463

== ENCOUNTER → 2019-02-09 | Outpatient (CLI) | payer MEDICARE, OTHER ==
[2019-02-09 10:23] VITALS: BP 132/80
== END | disposition home or self-care (01) ==
LOC: SRCNTR 10:16
PROVIDERS: ATTEND Internal Medicine Cardiovascular Disease
DX: E78.5 Hyperlipidemia, unspecified (principal); I42.9 Cardiomyopathy, unspecified; I11.0 Hypertensive heart disease with heart failure; I50.9 Heart failure, unspecified; Z95.0 Presence of cardiac pacemaker
CPT/HCPCS: G0463

== ENCOUNTER → 2019-12-15 | Outpatient (CLI) | payer MEDICARE, OTHER ==
[~2019-12-15] MED LIST changes: -ACET1TAB12 PO; -ACID1GRA PO; -ASPI81 PO; -CYAN1TAB44 PO; -ERGO500014 PO; -FURO20 PO; +RIVA20TA PO; +SENN-106 PO; -TELM20 PO; -VALA500T38 PO
[2019-12-15 10:29] VITALS: BP 126/75
== END | disposition home or self-care (01) ==
LOC: SRCNTR 10:27
PROVIDERS: ATTEND Internal Medicine Clinical Cardiac Electrophysiology
DX: Z45.018 Encounter for adjustment and management of other part of cardiac pacemaker (principal); E78.5 Hyperlipidemia, unspecified; I50.9 Heart failure, unspecified; I42.8 Other cardiomyopathies; Z86.73 Personal history of transient ischemic attack (TIA), and cerebral infarction without residual deficits
CPT/HCPCS: G0463

== ENCOUNTER → 2019-12-21 | Outpatient (CLI) | payer MEDICARE, OTHER ==
[~2019-12-21] VITALS: Ht 180.3 cm; Wt 72.0 kg
[2019-12-21 11:46] VITALS: BP 113/63
== END | disposition home or self-care (01) ==
LOC: SRCNTR 11:46
PROVIDERS: ATTEND Internal Medicine Cardiovascular Disease
DX: I42.9 Cardiomyopathy, unspecified (principal); I50.9 Heart failure, unspecified; E78.5 Hyperlipidemia, unspecified; Z95.0 Presence of cardiac pacemaker; Z86.73 Personal history of transient ischemic attack (TIA), and cerebral infarction without residual deficits
CPT/HCPCS: G0463

== ENCOUNTER → 2020-05-12 | Outpatient (CLI) | payer MEDICARE, OTHER | END | disposition home or self-care (01) | LOC: SRCNTR 15:31 | PROVIDERS: ATTEND Hospitalist | DX: I11.0 Hypertensive heart disease with heart failure (principal); E78.5 Hyperlipidemia, unspecified; I42.8 Other cardiomyopathies; I50.9 Heart failure, unspecified; Z86.73 Personal history of transient ischemic attack (TIA), and cerebral infarction without residual deficits; Z86.79 Personal history of other diseases of the circulatory system | CPT/HCPCS: Q3014 ==

== ENCOUNTER → 2020-05-18 | Outpatient (CLI) | payer MEDICARE, OTHER ==
[~2020-05-18] VITALS: Ht 180.3 cm; Wt 75.3 kg
[2020-05-18 11:07] VITALS: BP 127/74
== END | disposition home or self-care (01) ==
LOC: SRCNTR 11:06
PROVIDERS: ATTEND Internal Medicine Cardiovascular Disease
DX: I11.0 Hypertensive heart disease with heart failure (principal); I50.9 Heart failure, unspecified; I42.9 Cardiomyopathy, unspecified; E78.5 Hyperlipidemia, unspecified; I42.8 Other cardiomyopathies; Z86.73 Personal history of transient ischemic attack (TIA), and cerebral infarction without residual deficits; Z95.810 Presence of automatic (implantable) cardiac defibrillator
CPT/HCPCS: G0463

== ENCOUNTER → 2020-05-25 | Outpatient (CLI) | payer MEDICARE, OTHER ==
[~2020-05-25] VITALS: Ht 180.3 cm; Wt 65.6 kg
[2020-05-25 10:58] VITALS: BP 107/64
== END | disposition home or self-care (01) ==
LOC: SRCNTR 10:42
PROVIDERS: ATTEND Internal Medicine Cardiovascular Disease
DX: Z45.018 Encounter for adjustment and management of other part of cardiac pacemaker (principal); E78.5 Hyperlipidemia, unspecified; I50.9 Heart failure, unspecified; I49.9 Cardiac arrhythmia, unspecified
CPT/HCPCS: G0463

== ENCOUNTER → 2020-07-25 | Outpatient (CLI) | payer MEDICARE, OTHER ==
[~2020-07-25] VITALS: Ht 180.3 cm; Wt 69.2 kg
[2020-07-25 10:36] VITALS: BP 120/90
== END | disposition home or self-care (01) ==
LOC: SRCNTR 10:35
PROVIDERS: ATTEND Internal Medicine Cardiovascular Disease
DX: I42.8 Other cardiomyopathies (principal); I50.9 Heart failure, unspecified; I63.9 Cerebral infarction, unspecified; E78.5 Hyperlipidemia, unspecified; Z95.0 Presence of cardiac pacemaker; Z86.73 Personal history of transient ischemic attack (TIA), and cerebral infarction without residual deficits; Z79.899 Other long term (current) drug therapy
CPT/HCPCS: G0463; Z7500

== ENCOUNTER → 2020-09-26 | Outpatient (CLI) | payer MEDICARE, OTHER ==
[2020-09-26 10:31] VITALS: BP 104/68
== END | disposition home or self-care (01) ==
LOC: SRCNTR 10:29
PROVIDERS: ATTEND Internal Medicine Cardiovascular Disease
DX: I50.9 Heart failure, unspecified (principal); E78.5 Hyperlipidemia, unspecified; I42.8 Other cardiomyopathies; Z86.73 Personal history of transient ischemic attack (TIA), and cerebral infarction without residual deficits; Z95.818 Presence of other cardiac implants and grafts
CPT/HCPCS: G0463

== ENCOUNTER → 2020-11-28 | Outpatient (CLI) | payer MEDICARE, OTHER ==
[~2020-11-28] MED LIST changes: +INFLUENZA VIRUS VACCINE QVS 2020-21 (6MO+)/PF 60 MCG/0.5 ML SYRINGE IM ONE
[2020-11-28 11:05] VITALS: BP 131/100
== END | disposition home or self-care (01) ==
LOC: SRCNTR 10:39
PROVIDERS: ATTEND Internal Medicine Cardiovascular Disease
DX: Z23 Encounter for immunization (principal); E78.5 Hyperlipidemia, unspecified; I69.30 Unspecified sequelae of cerebral infarction; I50.9 Heart failure, unspecified; Z95.810 Presence of automatic (implantable) cardiac defibrillator; I42.8 Other cardiomyopathies
CPT/HCPCS: 90471; G0463; 90686

== ENCOUNTER → 2020-12-13 | Outpatient (CLI) | payer MEDICARE, OTHER ==
[~2020-12-13] VITALS: Ht 170.2 cm; Wt 76.0 kg
[~2020-12-13] MED LIST changes: -INFLUENZA VIRUS VACCINE QVS 2020-21 (6MO+)/PF 60 MCG/0.5 ML SYRINGE IM ONE
[2020-12-13 10:36] VITALS: BP 113/59
== END | disposition home or self-care (01) ==
LOC: SRCNTR 10:19
PROVIDERS: ATTEND Internal Medicine Clinical Cardiac Electrophysiology
DX: Z45.018 Encounter for adjustment and management of other part of cardiac pacemaker (principal)
CPT/HCPCS: 93289; G0463

== ENCOUNTER → 2021-03-17 | Outpatient (CLI) | payer MEDICARE, OTHER ==
[2021-03-17 11:12] VITALS: BP 120/60
== END | disposition home or self-care (01) ==
LOC: SRCNTR 10:34
PROVIDERS: ATTEND Internal Medicine Clinical Cardiac Electrophysiology
DX: Z45.02 Encounter for adjustment and management of automatic implantable cardiac defibrillator (principal)
CPT/HCPCS: 93289; G0463

== ENCOUNTER → 2021-04-07 | Outpatient (CLI) | payer MEDICARE, OTHER ==
[2021-04-07 11:54] VITALS: BP 115/62
== END | disposition home or self-care (01) ==
LOC: SRCNTR 10:54
PROVIDERS: ATTEND Internal Medicine Clinical Cardiac Electrophysiology
DX: Z45.02 Encounter for adjustment and management of automatic implantable cardiac defibrillator (principal)
CPT/HCPCS: 93289; Q3014

== ENCOUNTER → 2021-07-24 | Outpatient (CLI) | payer MEDICARE, OTHER ==
[~2021-07-24] VITALS: Ht 180.3 cm; Wt 75.0 kg
[~2021-07-24] MED LIST changes: +FURO40 PO; +POTA-92 PO
[2021-07-24 11:19] VITALS: BP 107/64
== END | disposition home or self-care (01) ==
LOC: SRCNTR 10:44
PROVIDERS: ATTEND Internal Medicine Cardiovascular Disease
DX: I50.9 Heart failure, unspecified (principal); I42.8 Other cardiomyopathies; E78.5 Hyperlipidemia, unspecified; R41.81 Age-related cognitive decline; Z45.02 Encounter for adjustment and management of automatic implantable cardiac defibrillator; Z86.73 Personal history of transient ischemic attack (TIA), and cerebral infarction without residual deficits
CPT/HCPCS: G0463

== ENCOUNTER → 2021-07-31 | Outpatient (CLI) | payer MEDICARE, OTHER ==
[2021-07-31 11:40] VITALS: BP 90/51
== END | disposition home or self-care (01) ==
LOC: SRCNTR 10:44
PROVIDERS: ATTEND Internal Medicine Cardiovascular Disease
DX: Z95.810 Presence of automatic (implantable) cardiac defibrillator (principal)
CPT/HCPCS: 93289; G0463

== ENCOUNTER → 2021-08-17 | Outpatient (CLI) | payer MEDICARE, OTHER ==
[~2021-08-17] VITALS: Ht 180.3 cm; Wt 68.5 kg
[~2021-08-17] MED LIST changes: +INFLUENZA VIRUS VACCINE QVS 2021-22 (6MO+)/PF 60 MCG/0.5 ML SYRINGE IM. ONE
[2021-08-17 14:26] VITALS: BP 102/58
== END | disposition home or self-care (01) ==
LOC: SRCNTR 10:36
PROVIDERS: ATTEND Hospitalist
DX: Z23 Encounter for immunization (principal); I11.0 Hypertensive heart disease with heart failure; I50.9 Heart failure, unspecified; I49.9 Cardiac arrhythmia, unspecified; I63.9 Cerebral infarction, unspecified; B02.9 Zoster without complications
CPT/HCPCS: 90686; 96372; G0463

== ENCOUNTER → 2021-08-21 | Outpatient (CLI) | payer MEDICARE, OTHER ==
[~2021-08-21] MED LIST changes: -INFLUENZA VIRUS VACCINE QVS 2021-22 (6MO+)/PF 60 MCG/0.5 ML SYRINGE IM. ONE
[2021-08-21 09:48] LABS: BASOPHILS % (AUTO) 0.9 % (0.0-2.0); EOSINOPHILS % (AUTO) 1.8 % (1.0-6.0); HEMATOCRIT 41.8 % (41-53); HEMOGLOBIN 13.9 g/dL (13.5-17.5); LYMPHOCYTES % (AUTO) 37.3 % (22.0-44.0); MEAN CORPUSCULAR HEMOGLOBIN 29.8 pg (26.0-34.0); MEAN CORPUSCULAR HGB CONC 33.2 G/dL (31.0-37.0); MEAN CORPUSCULAR VOLUME 90 fL (80-100); MONOCYTES # (AUTO) 0.4 K/uL (0.1-1.0); MONOCYTES % (AUTO) 15.2 % (2.0-9.0); NEUTROPHILS # (AUTO) 1.3 K/uL (1.8-7.7); NEUTROPHILS % (AUTO) 44.8 % (40.0-70.0); RED BLOOD CELL COUNT(AUTO) 4.66 MIL/uL (4.50-5.90); RED CELL DISTRIBUTION WIDTH 15.6 % (11.5-14.5)
[2021-08-21 10:04] LABS: CHOL/HDL RATIO 2.1 (4.2-7.3); FREE T4 (FREE THYROXINE) 1.08 ng/dL (0.76-1.46); THYROID STIMULATING HORMONE 2.19 uIU/mL (0.36-3.74)
[2021-08-21 10:17] LABS: PLATELET COUNT (AUTO) 70 K/uL (150-450); PLATELET MORPHOLOGY COMMENT LARGE PLTS PRESENT
[2021-08-21 10:37] LABS: PROSTATE SPECIFIC ANTIGEN 20.87 ng/mL (0.00-4.00)
== END | disposition home or self-care (01) ==
LOC: LABMN 09:05
PROVIDERS: ATTEND Hospitalist
DX: Z12.5 Encounter for screening for malignant neoplasm of prostate (principal); I11.0 Hypertensive heart disease with heart failure; I50.9 Heart failure, unspecified; E78.5 Hyperlipidemia, unspecified
CPT/HCPCS: 36415; 80061; 84439; 84443; 85025; G0103; 84153

== ENCOUNTER → 2021-10-06 | Outpatient (CLI) | payer MEDICARE, OTHER ==
[~2021-10-06] VITALS: Ht 180.3 cm; Wt 75.0 kg
[2021-10-06 11:22] VITALS: BP 103/68
== END | disposition home or self-care (01) ==
LOC: SRCNTR 10:51
PROVIDERS: ATTEND Internal Medicine Cardiovascular Disease
DX: I50.9 Heart failure, unspecified (principal); E78.5 Hyperlipidemia, unspecified; I42.8 Other cardiomyopathies; R41.81 Age-related cognitive decline; Z86.73 Personal history of transient ischemic attack (TIA), and cerebral infarction without residual deficits; Z95.810 Presence of automatic (implantable) cardiac defibrillator
CPT/HCPCS: G0463; Z7500

== ENCOUNTER → 2021-11-16 | Outpatient (CLI) | payer MEDICARE, OTHER ==
[~2021-11-16] VITALS: Ht 180.3 cm; Wt 76.0 kg
[2021-11-16 09:40] VITALS: BP 108/68
== END | disposition home or self-care (01) ==
LOC: SRCNTR 09:10
PROVIDERS: ATTEND Hospitalist
DX: I11.0 Hypertensive heart disease with heart failure (principal); I50.9 Heart failure, unspecified; I63.9 Cerebral infarction, unspecified; I49.9 Cardiac arrhythmia, unspecified; B02.8 Zoster with other complications
CPT/HCPCS: G0463

== ENCOUNTER → 2021-11-20 | Outpatient (CLI) | payer MEDICARE, OTHER ==
[~2021-11-20] VITALS: Ht 180.3 cm; Wt 75.0 kg
[2021-11-20 10:05] VITALS: BP 119/80
== END | disposition home or self-care (01) ==
LOC: SRCNTR 09:42
PROVIDERS: ATTEND Internal Medicine Cardiovascular Disease
DX: Z45.02 Encounter for adjustment and management of automatic implantable cardiac defibrillator (principal)
CPT/HCPCS: 93289; G0463

== ENCOUNTER → 2022-03-07 | Outpatient (CLI) | payer MEDICARE, OTHER ==
[~2022-03-07] VITALS: Ht 177.8 cm; Wt 73.0 kg
[2022-03-07 13:46] VITALS: BP 100/57
== END | disposition home or self-care (01) ==
LOC: SRCNTR 11:46
PROVIDERS: ATTEND Hospitalist
DX: Z45.02 Encounter for adjustment and management of automatic implantable cardiac defibrillator (principal)
CPT/HCPCS: G0463; Z7500

== ENCOUNTER → 2022-03-23 | Outpatient (CLI) | payer MEDICARE, OTHER ==
[2022-03-23 11:40] VITALS: BP 143/73
== END | disposition home or self-care (01) ==
LOC: SRCNTR 09:54
PROVIDERS: ATTEND Internal Medicine Cardiovascular Disease
DX: Z45.010 Encounter for checking and testing of cardiac pacemaker pulse generator [battery] (principal)
CPT/HCPCS: G0463; Z7500

== ENCOUNTER → 2022-06-29 | Outpatient (CLI) | payer MEDICARE, OTHER ==
[2022-06-29 10:41] VITALS: BP 106/67
== END | disposition home or self-care (01) ==
LOC: SRCNTR 10:07
PROVIDERS: ATTEND Internal Medicine Cardiovascular Disease
DX: I50.9 Heart failure, unspecified (principal); Z09 Encounter for follow-up examination after completed treatment for conditions other than malignant neoplasm; E78.5 Hyperlipidemia, unspecified; I42.8 Other cardiomyopathies; R41.81 Age-related cognitive decline; Z95.810 Presence of automatic (implantable) cardiac defibrillator
CPT/HCPCS: G0463

== ENCOUNTER → 2022-07-03 | Outpatient (CLI) | payer MEDICARE, OTHER ==
[2022-07-03 15:24] VITALS: BP 106/67
== END | disposition home or self-care (01) ==
LOC: SRCNTR 14:33
PROVIDERS: ATTEND Internal Medicine Cardiovascular Disease
DX: Z45.02 Encounter for adjustment and management of automatic implantable cardiac defibrillator (principal)
CPT/HCPCS: 93289; G0463

== ENCOUNTER → 2022-10-10 | Outpatient (CLI) | payer MEDICARE, OTHER ==
[~2022-10-10] MED LIST changes: +INFLUENZA VIRUS VACCINE QVS 2022-23 (6MO+)/PF 60 MCG/0.5 ML SYRINGE IM. ONE
[2022-10-10 12:41] VITALS: BP 95/46
== END | disposition home or self-care (01) ==
LOC: SRCNTR 10:39
PROVIDERS: ATTEND Internal Medicine Cardiovascular Disease
DX: Z23 Encounter for immunization (principal); Z95.810 Presence of automatic (implantable) cardiac defibrillator
CPT/HCPCS: 90686; 93289; 90471; G0463

== ENCOUNTER → 2023-01-09 | Outpatient (CLI) | payer MEDICARE, OTHER ==
[~2023-01-09] MED LIST changes: -INFLUENZA VIRUS VACCINE QVS 2022-23 (6MO+)/PF 60 MCG/0.5 ML SYRINGE IM. ONE
[2023-01-09 11:15] VITALS: BP 128/74
== END | disposition home or self-care (01) ==
LOC: SRCNTR 10:36
PROVIDERS: ATTEND Internal Medicine Cardiovascular Disease
DX: Z45.02 Encounter for adjustment and management of automatic implantable cardiac defibrillator (principal)
CPT/HCPCS: 93289; G0463

== ENCOUNTER → 2023-02-27 | Outpatient (CLI) | payer MEDICARE, OTHER ==
[2023-02-27 14:55] VITALS: BP 108/79
== END | disposition home or self-care (01) ==
LOC: SRCNTR 13:49
PROVIDERS: ATTEND Hospitalist
DX: I42.8 Other cardiomyopathies (principal); I50.9 Heart failure, unspecified; E78.5 Hyperlipidemia, unspecified; I63.9 Cerebral infarction, unspecified; R41.81 Age-related cognitive decline; R97.20 Elevated prostate specific antigen [PSA]; Z95.810 Presence of automatic (implantable) cardiac defibrillator
CPT/HCPCS: G0463

== ENCOUNTER → 2023-03-06 | Outpatient (CLI) | payer MEDICARE, OTHER ==
[2023-03-06 10:37] LABS: BASOPHILS % (AUTO) 0.4 % (0.0-2.0); HEMATOCRIT 38.4 % (41-53); HEMOGLOBIN 12.7 g/dL (13.5-17.5); LYMPHOCYTES # (AUTO) 1.5 K/uL (1.0-4.8); LYMPHOCYTES % (AUTO) 40.3 % (22.0-44.0); MEAN CORPUSCULAR HEMOGLOBIN 27.2 pg (26.0-34.0); MEAN CORPUSCULAR VOLUME 82 fL (80-100); MONOCYTES # (AUTO) 0.6 K/uL (0.1-1.0); MONOCYTES % (AUTO) 16.1 % (2.0-9.0); NEUTROPHILS # (AUTO) 1.6 K/uL (1.8-7.7); NEUTROPHILS % (AUTO) 41.2 % (40.0-70.0); PLATELET COUNT (AUTO) 100 K/uL (150-450); RED BLOOD CELL COUNT(AUTO) 4.66 MIL/uL (4.50-5.90); RED CELL DISTRIBUTION WIDTH 15.4 % (11.5-14.5)
[2023-03-06 10:48] LABS: ALANINE AMINOTRANSFERASE 22 U/L (12-78); ALKALINE PHOSPHATASE 99 U/L (46-116); ANION GAP 5 mmol/L (8-16); ASPARTATE AMINOTRANSFERASE 29 U/L (15-37); BILIRUBIN,TOTAL 0.9 mg/dL (0.1-1.0); CALCIUM, TOTAL 8.8 mg/dL (8.8-10.5); CARBON DIOXIDE 31 mmol/L (22-29); CHLORIDE 105 mmol/L (98-107); CHOLESTEROL 110 mg/dL (131-200); CREATININE 1.02 mg/dL (0.60-1.30); GLOMERULAR FILTR. RATE CALC > 60 mL/min (>60); GLUCOSE,RANDOM 96 mg/dL (70-110); HDL CHOLESTEROL 55 mg/dL (40-60); LDL CHOL (CALC.) 42 mg/dL (0-130); SODIUM SERUM 141 mmol/L (136-145); TOTAL PROTEIN, SERUM 7.6 g/dL (6.4-8.2); TRIGLYCERIDES 63 mg/dL (15-150); UREA NITROGEN, BLOOD 11 mg/dL (7-18)
[2023-03-06 11:33] LABS: THYROID STIMULATING HORMONE 2.04 uIU/mL (0.36-3.74)
[2023-03-06 11:35] LABS: PROSTATE SPECIFIC ANTIGEN 17.13 ng/mL (0.00-4.00)
== END | disposition home or self-care (01) ==
LOC: LABMN 10:06
PROVIDERS: ATTEND Hospitalist
DX: Z01.89 Encounter for other specified special examinations (principal); Z79.899 Other long term (current) drug therapy; N40.0 Benign prostatic hyperplasia without lower urinary tract symptoms
CPT/HCPCS: 80053; 80061; 84153; 84443; 85025

== ENCOUNTER → 2023-05-15 | Outpatient (CLI) | payer MEDICARE, OTHER ==
[2023-05-15 13:16] VITALS: BP 129/71; PULSE 83; RESP 14; TEMP 98.2; O2SAT 100
== END | disposition home or self-care (01) ==
LOC: SRCNTR 13:10
PROVIDERS: ATTEND Hospitalist
DX: I42.8 Other cardiomyopathies (principal); I50.9 Heart failure, unspecified; E78.5 Hyperlipidemia, unspecified; I63.9 Cerebral infarction, unspecified; R41.81 Age-related cognitive decline; M19.90 Unspecified osteoarthritis, unspecified site; Z95.810 Presence of automatic (implantable) cardiac defibrillator
CPT/HCPCS: G0463; Z7500

== ENCOUNTER → 2023-05-22 | Outpatient (CLI) | payer MEDICARE, OTHER ==
[2023-05-22 14:03] VITALS: BP 107/68; PULSE 77; RESP 18; TEMP 98.6; O2SAT 98
== END | disposition home or self-care (01) ==
LOC: SRCNTR 11:13
PROVIDERS: ATTEND Internal Medicine Cardiovascular Disease
DX: R00.0 Tachycardia, unspecified (principal); Z79.899 Other long term (current) drug therapy
CPT/HCPCS: G0463; Z7500

== ENCOUNTER → 2023-08-15 | Outpatient (CLI) | payer MEDICARE, OTHER ==
[~2023-08-15] MED LIST changes: +INFLUENZA VIRUS VACCINE QVS 2023-24 (6MO+)/PF 60 MCG/0.5 ML SYRINGE IM. ONE; +SENN-338 PO
[2023-08-15 12:37] VITALS: BP 116/72; PULSE 82; RESP 22; TEMP 97.6; O2SAT 98
== END | disposition home or self-care (01) ==
LOC: SRCNTR 11:54
PROVIDERS: ATTEND Hospitalist
DX: Z23 Encounter for immunization (principal); I11.0 Hypertensive heart disease with heart failure; I50.9 Heart failure, unspecified; E78.5 Hyperlipidemia, unspecified; M16.11 Unilateral primary osteoarthritis, right hip; I42.8 Other cardiomyopathies; Z79.899 Other long term (current) drug therapy; Z95.810 Presence of automatic (implantable) cardiac defibrillator
CPT/HCPCS: 90686; 90471; G0463

== ENCOUNTER → 2023-08-21 | Outpatient (CLI) | payer MEDICARE, OTHER ==
[~2023-08-21] MED LIST changes: -INFLUENZA VIRUS VACCINE QVS 2023-24 (6MO+)/PF 60 MCG/0.5 ML SYRINGE IM. ONE
[2023-08-21 11:29] VITALS: BP 106/67; PULSE 88; RESP 18; TEMP 98.8; O2SAT 99
== END | disposition home or self-care (01) ==
LOC: SRCNTR 10:01
PROVIDERS: ATTEND Internal Medicine Cardiovascular Disease
DX: Z45.02 Encounter for adjustment and management of automatic implantable cardiac defibrillator (principal)
CPT/HCPCS: G0463; Z7500

== ENCOUNTER → 2023-09-23 | Outpatient (CLI) | payer MEDICARE, OTHER ==
[2023-09-23 10:26] VITALS: BP 96/62; PULSE 68; RESP 22; TEMP 98.9; O2SAT 98
== END | disposition home or self-care (01) ==
LOC: SRCNTR 10:16
PROVIDERS: ATTEND Internal Medicine Cardiovascular Disease
DX: I42.8 Other cardiomyopathies (principal); I50.9 Heart failure, unspecified; I49.9 Cardiac arrhythmia, unspecified; E78.5 Hyperlipidemia, unspecified; Z95.0 Presence of cardiac pacemaker; I63.9 Cerebral infarction, unspecified; Z98.890 Other specified postprocedural states; Z79.899 Other long term (current) drug therapy
CPT/HCPCS: G0463

== ENCOUNTER → 2023-10-10 | Outpatient (CLI) | payer MEDICARE, OTHER ==
[~2023-10-10] MED LIST changes: +ACET-2247 PO; +ALBU2.5V39 NEB; +ATOR40TA71 PO; +BISA-151 PO; +DICL100G60 TP; +DOCU-385 PO; +FOLI-130 PO; +HYDR-4769 PO; +IPRA0.2S49 NEB; +MAGN-169 PO; +MORP2CAR IVP; +ONDA-104 PO; +PANT-31 PO; +SENN-277 PO; +WARF3TAB8 PO; +ZOLP-280 PO
[2023-10-10 14:08] VITALS: BP 127/72; PULSE 72; RESP 18; TEMP 98; O2SAT 97
== END | disposition home or self-care (01) ==
LOC: SRCNTR 13:45
PROVIDERS: ATTEND Hospitalist
DX: I42.8 Other cardiomyopathies (principal); R60.0 Localized edema; E78.5 Hyperlipidemia, unspecified; I50.9 Heart failure, unspecified; Z86.73 Personal history of transient ischemic attack (TIA), and cerebral infarction without residual deficits; Z95.810 Presence of automatic (implantable) cardiac defibrillator; Z79.899 Other long term (current) drug therapy; Z09 Encounter for follow-up examination after completed treatment for conditions other than malignant neoplasm
CPT/HCPCS: G0463; Z7500

== ENCOUNTER → 2023-11-08 | Outpatient (CLI) | payer MEDICARE, OTHER ==
[~2023-11-08] MED LIST changes: -ACET-2247 PO; -ALBU2.5V39 NEB; -BISA-151 PO; -HYDR-4769 PO; -IPRA0.2S49 NEB; -MAGN-169 PO; -MORP2CAR IVP; -ONDA-104 PO; -RIVA20TA PO; -SENN-106 PO; -SENN-338 PO; -ZOLP-280 PO
[2023-11-08 14:49] VITALS: BP 118/71; PULSE 82; RESP 18; TEMP 98.3; O2SAT 98
== END | disposition home or self-care (01) ==
LOC: SRCNTR 13:14
PROVIDERS: ATTEND Internal Medicine Cardiovascular Disease
DX: I82.412 Acute embolism and thrombosis of left femoral vein (principal); Z79.01 Long term (current) use of anticoagulants
CPT/HCPCS: 85610; G0463

== ENCOUNTER → 2023-11-11 | Outpatient (CLI) | payer MEDICARE, OTHER ==
[2023-11-11 11:20] VITALS: BP 116/69; PULSE 72; RESP 18; TEMP 98.7; O2SAT 97
== END | disposition home or self-care (01) ==
LOC: SRCNTR 10:57
PROVIDERS: ATTEND Internal Medicine Cardiovascular Disease
DX: Z09 Encounter for follow-up examination after completed treatment for conditions other than malignant neoplasm (principal); I42.8 Other cardiomyopathies; I50.9 Heart failure, unspecified; E78.5 Hyperlipidemia, unspecified; I82.412 Acute embolism and thrombosis of left femoral vein; R41.81 Age-related cognitive decline; Z79.01 Long term (current) use of anticoagulants; Z95.810 Presence of automatic (implantable) cardiac defibrillator; Z86.73 Personal history of transient ischemic attack (TIA), and cerebral infarction without residual deficits
CPT/HCPCS: 85610; G0463

== ENCOUNTER → 2023-11-26 | Outpatient (CLI) | payer MEDICARE, OTHER ==
[~2023-11-26] MED LIST changes: -ATOR40TA71 PO; +WARF1TAB9 PO
[2023-11-26 12:50] VITALS: BP 116/60; PULSE 66; RESP 19; TEMP 98.8; O2SAT 98
== END | disposition home or self-care (01) ==
LOC: SRCNTR 12:31
PROVIDERS: ATTEND Hospitalist
DX: Z09 Encounter for follow-up examination after completed treatment for conditions other than malignant neoplasm (principal); I42.8 Other cardiomyopathies; I11.0 Hypertensive heart disease with heart failure; I50.9 Heart failure, unspecified; E78.5 Hyperlipidemia, unspecified; R41.81 Age-related cognitive decline; D72.819 Decreased white blood cell count, unspecified; Z86.73 Personal history of transient ischemic attack (TIA), and cerebral infarction without residual deficits; Z95.810 Presence of automatic (implantable) cardiac defibrillator; I82.409 Acute embolism and thrombosis of unspecified deep veins of unspecified lower extremity; Z79.899 Other long term (current) drug therapy
CPT/HCPCS: 85610; G0463

== ENCOUNTER → 2023-12-18 | Outpatient (CLI) | payer MEDICARE, OTHER ==
[2023-12-18 11:16] VITALS: BP 115/57; PULSE 84; RESP 22; TEMP 98.4; O2SAT 98
== END | disposition home or self-care (01) ==
LOC: SRCNTR 10:48
PROVIDERS: ATTEND Internal Medicine Cardiovascular Disease
DX: J44.9 Chronic obstructive pulmonary disease, unspecified (principal); I50.9 Heart failure, unspecified; E78.5 Hyperlipidemia, unspecified; Z79.01 Long term (current) use of anticoagulants; Z95.0 Presence of cardiac pacemaker
CPT/HCPCS: 85610; G0463

== ENCOUNTER → 2024-02-17 | Outpatient (CLI) | payer MEDICARE, OTHER ==
[2024-02-17 11:13] VITALS: BP 109/68; PULSE 80; RESP 24; TEMP 99; O2SAT 100
== END | disposition home or self-care (01) ==
LOC: SRCNTR 10:50
PROVIDERS: ATTEND Internal Medicine Cardiovascular Disease
DX: Z09 Encounter for follow-up examination after completed treatment for conditions other than malignant neoplasm (principal); I42.8 Other cardiomyopathies; I50.9 Heart failure, unspecified; R41.81 Age-related cognitive decline; I82.412 Acute embolism and thrombosis of left femoral vein; Z79.01 Long term (current) use of anticoagulants; Z95.810 Presence of automatic (implantable) cardiac defibrillator; Z86.73 Personal history of transient ischemic attack (TIA), and cerebral infarction without residual deficits
CPT/HCPCS: 85610; G0463

== ENCOUNTER → 2024-03-04 | Outpatient (CLI) | payer MEDICARE, OTHER ==
[2024-03-04 11:32] VITALS: BP 103/64; PULSE 65; RESP 18; TEMP 99.2; O2SAT 99
== END | disposition home or self-care (01) ==
LOC: SRCNTR 11:09
PROVIDERS: ATTEND Internal Medicine Cardiovascular Disease
DX: I42.8 Other cardiomyopathies (principal); E78.5 Hyperlipidemia, unspecified; I50.9 Heart failure, unspecified; Z86.718 Personal history of other venous thrombosis and embolism; Z97.8 Presence of other specified devices; Z79.899 Other long term (current) drug therapy
CPT/HCPCS: G0463; Z7500

== ENCOUNTER → 2024-04-15 | Outpatient (CLI) | payer MEDICARE, OTHER ==
[2024-04-15 11:33] VITALS: BP 110/67; PULSE 70; RESP 20; TEMP 98.6; O2SAT 99
== END | disposition home or self-care (01) ==
LOC: SRCNTR 11:06
PROVIDERS: ATTEND Internal Medicine Cardiovascular Disease
DX: I42.8 Other cardiomyopathies (principal); I50.9 Heart failure, unspecified; E78.5 Hyperlipidemia, unspecified; Z98.890 Other specified postprocedural states; Z79.01 Long term (current) use of anticoagulants; Z79.899 Other long term (current) drug therapy
CPT/HCPCS: 85610; G0463